=== PATIENT | male | born 1950 | race Caucasian/White ===

== ENCOUNTER 2017-03-08 09:57 | Emergency (ER) | payer OTHER ==
[~2017-03-08] VITALS: Wt 97.5 kg
[~2017-03-08 09:57] MED LIST: 'CIPRO500 M1 PO; ALBUTEROL0.09 MG/A2 INH; ANTIVERT/2525 MG PO; ANTIVERT25 MG PO; ASPI-COR81 M1 PO; ATIVAN0.5 MG PO; ATIVAN1 MG PO; AUGMENTIN 875 M1 TAB PO; AUGMENTIN 875-875 MG PO; AUGMENTIN 875875 MG PO; BIAXIN500 MG PO; CARVEDILOL3.125 MG PO; CIPROFLOXACIN500 MG PO; CITALOPRAM10 MG PO; CLARITIN10 MG PO; CLINDAMYCIN150 MG PO; DURICEF500 MG PO; FLEXERIL10 MG PO; FLOMAX0.4 MG PO; FLONASE 0.05% 121 EA NAS; GLUCOPHAGE500 MG PO; HUMALOG100 U/ML SC; HUMULIN 70/30 703 M1 SC; HUMULIN N100 U/ML SC; HYDROCODONE BIT1 T11 PO; IBU-8800 MG PO; IBUPROFEN600 MG PO; KENALOG 0.5% CR15 GM T; LANTUS100 U/ML SC; LEVOFLOXACIN500 MG PO; LISINOPRIL10 MG PO; LISINOPRIL2.5 MG PO; LOPRESSOR25 MG PO; MEDROL DOSEPAK4 MG PO; METFORMIN500 MG PO; METOPROLOL SUCC25 M2 PO; MIRALAX17 GM PO; MOTRIN800 MG PO; NAPROSYN500 MG PO; NO MED LIST; NORFLEX100 MG PO; NOVOLIN 70/30 701 EA PO; NOVOLIN 70/301.5 ML SC; NOVOLIN 701 UNIT/0.0 SC; NOVOLIN N100 U/ML SC; NOVOLIN R100 U/ML IJ; NOVOLIN R100 U/ML SC; OMEPRAZOLE20 MG PO; PENICILLIN VK500 MG PO; PERCOCET 325 MG1 TA2 PO; PLAVIX75 MG PO; PREDNICOT20 MG PO; PRILOSEC20 MG PO; PROTONIX40 MG PO; PROVENTIL0.09 MG/AC IH; ROBITUSSIN AC 110 ML PO; SIMVASTATIN5 MG PO; SKELAXIN800 M1 PO; TAMSULOSIN HCL0.4 MG PO; TOPROL XL25 MG PO; ULTRAM50 MG PO; VICO10300 PO; VICODIN 5/500 505 MG PO; VITAMIN D32000 IU PO; VITAMIN D400 I1 PO; ZITHROMAX Z PA250 MG PO; ZITHROMAX250 MG PO; ZOCOR10 MG PO; ZOCOR5 MG PO
[2017-03-08 10:03] VITALS: BP 152/65
[2017-03-08 10:44] LABS: BASO # 0.1 10*3/uL (0.0-0.1); BASO % 1.2 % (0.0-1.0); EOS # 0.2 10*3/uL (0.0-0.4); EOS % 1.8 % (1.0-4.0); HEMATOCRIT 49.1 % (42.0-52.0); HEMOGLOBIN 16.5 g/dl (14.0-18.0); LYMPH # 4.9 10*3/uL (1.3-4.4); MEAN CELL VOLUME 91.6 fl (80.0-94.0); MEAN CORPUSCULAR HGB 30.8 pg (27.0-31.0); MEAN CORPUSCULAR HGB CONC 33.6 g/dl (33.0-37.0); MEAN PLATELET VOLUME 10.4 fl (9.6-12.3); MONO # 1.2 10*3/uL (0.1-1.0); MONO % 9.8 % (3.0-9.0); NEUT # 5.3 10*3/uL (2.3-7.9); PLATELET COUNT AUTOMATED 374 10*3/uL (130-400); RED BLOOD COUNT 5.36 10*6/uL (4.50-5.90); RED CELL DISTRI WIDTH 14.9 % (0-14.5); WHITE BLOOD COUNT 11.7 10*3/uL (4.8-10.8)
[2017-03-08 10:57] LABS: ALBUMIN 3.5 gm/dl (3.1-4.5); ALKALINE PHOSPHATASE 87 U/L (45-117); BILIRUBIN, TOTAL 1.4 mg/dl (0.2-1.0); BUN 10 mg/dl (7-24); CARBON DIOXIDE 28 mmol/L (21-32); CHLORIDE 104 mmol/L (98-107); EST GLOM FILT AFRICAN AMERICAN > 60 ml/min; GLUCOSE 187 mg/dL (65-99); POTASSIUM 4.2 mmol/L (3.5-5.1); SGOT/AST 27 IU/L (3-35); SGPT/ALT 22 U/L (12-78); SODIUM 140 mmol/L (136-145); TOTAL PROTEIN 7.2 gm/dL (6.4-8.2)
== END 2017-03-08 12:06 | disposition home or self-care (01) ==
LOC: ED 09:57
PROVIDERS: Emergency Medicine
DX: G89.29 Other chronic pain (principal); R10.9 Unspecified abdominal pain; I10 Essential (primary) hypertension; E10.65 Type 1 diabetes mellitus with hyperglycemia; I48.91 Unspecified atrial fibrillation; Z79.899 Other long term (current) drug therapy; Z79.82 Long term (current) use of aspirin; Z90.49 Acquired absence of other specified parts of digestive tract

== ENCOUNTER 2017-10-02 10:39 | Emergency (ER) | payer OTHER ==
[~2017-10-02] VITALS: Ht 175.2 cm; Wt 95.3 kg
[~2017-10-02 10:39] MED LIST changes: +LANTUS SOL100 UNIT/1 SC; -LANTUS100 U/ML SC
[2017-10-02 10:45] VITALS: BP 138/53
[2017-10-02] MEDS ORDERED: ZITHROMAX250 MG PO (12:45)
== END 2017-10-02 12:56 | disposition home or self-care (01) ==
LOC: ED 10:39
DX: J18.9 Pneumonia, unspecified organism (principal); I48.91 Unspecified atrial fibrillation; E10.65 Type 1 diabetes mellitus with hyperglycemia; I10 Essential (primary) hypertension; G89.29 Other chronic pain; F10.10 Alcohol abuse, uncomplicated; Z90.49 Acquired absence of other specified parts of digestive tract; Z79.82 Long term (current) use of aspirin; Z79.4 Long term (current) use of insulin; Z79.899 Other long term (current) drug therapy

== ENCOUNTER 2017-10-03 23:52 | Emergency (ER) | payer OTHER ==
[~2017-10-03] VITALS: Ht 175.2 cm; Wt 102.1 kg
[2017-10-03 23:58] VITALS: BP 126/63
[2017-10-04 00:27] LABS: HEMATOCRIT 51.3 % (42.0-52.0); HEMOGLOBIN 17.3 g/dl (14.0-18.0); MEAN CELL VOLUME 94.6 fl (80.0-94.0); MEAN CORPUSCULAR HGB 31.9 pg (27.0-31.0); MEAN CORPUSCULAR HGB CONC 33.7 g/dl (33.0-37.0); MEAN PLATELET VOLUME 10.1 fl (9.6-12.3); PLATELET COUNT AUTOMATED 345 10*3/uL (130-400); RED BLOOD COUNT 5.42 10*6/uL (4.50-5.90); RED CELL DISTRI WIDTH 14.9 % (0-14.5); WHITE BLOOD COUNT 13.7 10*3/uL (4.8-10.8)
[2017-10-04 00:44] LABS: ALBUMIN 3.4 gm/dl (3.1-4.5); ALKALINE PHOSPHATASE 83 U/L (45-117); BUN 14 mg/dl (7-24); CHLORIDE 102 mmol/L (98-107); CREATININE 0.94 mg/dL (0.70-1.30); POTASSIUM 4.1 mmol/L (3.5-5.1); SGOT/AST 39 IU/L (3-35); SGPT/ALT 31 U/L (12-78); SODIUM 136 mmol/L (136-145); TOTAL PROTEIN 7.3 gm/dL (6.4-8.2)
[2017-10-04 00:46] LABS: ATYPICAL LYMPHS 1 % (0-0); PLATELET SUFFICIENCY NORMAL (NORMAL); TOTAL CELLS COUNTED 100 #CELLS
== END 2017-10-04 01:58 | disposition home or self-care (01) ==
LOC: ED 23:52
PROVIDERS: Physician Assistant
DX: J18.9 Pneumonia, unspecified organism (principal); Z90.49 Acquired absence of other specified parts of digestive tract; Z98.890 Other specified postprocedural states; Z79.4 Long term (current) use of insulin; Z79.82 Long term (current) use of aspirin; Z79.899 Other long term (current) drug therapy

== ENCOUNTER 2017-10-05 15:59 | Emergency (ER) | payer OTHER ==
[~2017-10-05] VITALS: Ht 175.2 cm; Wt 99.8 kg
[2017-10-05 17:03] LABS: HEMATOCRIT 51.3 % (42.0-52.0); HEMOGLOBIN 17.3 g/dl (14.0-18.0); MEAN CELL VOLUME 94.3 fl (80.0-94.0); MEAN CORPUSCULAR HGB 31.8 pg (27.0-31.0); MEAN CORPUSCULAR HGB CONC 33.7 g/dl (33.0-37.0); PLATELET COUNT AUTOMATED 346 10*3/uL (130-400); RED BLOOD COUNT 5.44 10*6/uL (4.50-5.90); RED CELL DISTRI WIDTH 14.6 % (0-14.5)
[2017-10-05 17:18] LABS: ACT PARTIAL THROMBO TIME 25.2 SECONDS (20.8-31.5)
[2017-10-05 17:21] LABS: ALBUMIN 3.5 gm/dl (3.1-4.5); ALKALINE PHOSPHATASE 87 U/L (45-117); BUN 13 mg/dl (7-24); CHLORIDE 100 mmol/L (98-107); CREATININE 0.95 mg/dL (0.70-1.30); POTASSIUM 3.9 mmol/L (3.5-5.1); SGOT/AST 33 IU/L (3-35); SGPT/ALT 26 U/L (12-78); SODIUM 135 mmol/L (136-145); TOTAL PROTEIN 7.2 gm/dL (6.4-8.2)
[2017-10-05 17:23] LABS: BASOPHILS 1 % (0-1); BURR CELLS FEW; PLATELET SUFFICIENCY NORMAL (NORMAL); TOTAL CELLS COUNTED 100 #CELLS
[2017-10-05 17:25] LABS: TROPONIN I < 0.015 ng/ml (<0.045)
[2017-10-05 17:30] VITALS: BP 134/78
== END 2017-10-05 17:47 | disposition home or self-care (01) ==
LOC: ED 15:59
PROVIDERS: Physician Assistant
DX: J18.1 Lobar pneumonia, unspecified organism (principal); Z79.82 Long term (current) use of aspirin

== ENCOUNTER 2017-11-09 18:33 | Emergency (ER) | payer OTHER ==
[~2017-11-09] VITALS: Ht 175.2 cm; Wt 95.3 kg
[2017-11-09 19:04] LABS: HEMATOCRIT 50.2 % (42.0-52.0); MEAN CELL VOLUME 94.7 fl (80.0-94.0); MEAN CORPUSCULAR HGB 32.1 pg (27.0-31.0); MEAN CORPUSCULAR HGB CONC 33.9 g/dl (33.0-37.0); MEAN PLATELET VOLUME 10.5 fl (9.6-12.3); PLATELET COUNT AUTOMATED 351 10*3/uL (130-400); RED CELL DISTRI WIDTH 14.3 % (0-14.5); WHITE BLOOD COUNT 11.9 10*3/uL (4.8-10.8)
[2017-11-09 19:14] LABS: ACT PARTIAL THROMBO TIME 25.4 SECONDS (20.8-31.5)
[2017-11-09 19:23] LABS: ATYPICAL LYMPHS 5 % (0-0); BURR CELLS MODERATE; PLATELET SUFFICIENCY NORMAL (NORMAL); TOTAL CELLS COUNTED 100 #CELLS
[2017-11-09 19:30] LABS: ALBUMIN 3.6 gm/dl (3.1-4.5); ALKALINE PHOSPHATASE 80 U/L (45-117); BUN 11 mg/dl (7-24); CHLORIDE 99 mmol/L (98-107); CREATININE 0.91 mg/dL (0.70-1.30); LIPASE 87 U/L (73-393); POTASSIUM 3.6 mmol/L (3.5-5.1); SGOT/AST 30 IU/L (3-35); SGPT/ALT 30 U/L (12-78); SODIUM 136 mmol/L (136-145); TOTAL PROTEIN 7.1 gm/dL (6.4-8.2)
[2017-11-09 19:38] LABS: TROPONIN I < 0.015 ng/ml (<0.045)
[2017-11-09 21:50] VITALS: BP 154/54
== END 2017-11-09 21:41 | disposition home or self-care (01) ==
LOC: ED 18:33
PROVIDERS: Nurse Practitioner Family
DX: T38.3X1A Poisoning by insulin and oral hypoglycemic [antidiabetic] drugs, accidental (unintentional), initial encounter (principal); I48.91 Unspecified atrial fibrillation; G89.29 Other chronic pain; E10.65 Type 1 diabetes mellitus with hyperglycemia; I10 Essential (primary) hypertension; Z79.4 Long term (current) use of insulin; Z88.6 Allergy status to analgesic agent; Y92.89 Other specified places as the place of occurrence of the external cause

== ENCOUNTER 2017-12-12 07:32 | Emergency (ER) | payer OTHER ==
[~2017-12-12] VITALS: Ht 175.2 cm; Wt 93.0 kg
--- NOTE | ~2017-12-12 | EKG ---
[place], [place] ELECTROCARDIOGRAM REPORT NAME: MAGDIEL GOULD UNIT #: [id number] ROOM: DOCTOR: WHIT MONTEJO [facility],[place] BIRTHDATE: [birth year] DOS: 12/12/2017 ELECTROCARDIOGRAM REPORT TIME: 08. CONCLUSION: 1. Sinus rhythm. 2. Poor R-wave progression in the precordial leads. ZO SHERMAN MD CM:EKGRPT:ELECTROCARDIOGRAM REPORT [id number] ZO SHERMAN MD [facility]
[2017-12-12 07:38] VITALS: BP 153/72
[2017-12-12 08:19] LABS: HEMATOCRIT 52.3 % (42.0-52.0); HEMOGLOBIN 17.5 g/dl (14.0-18.0); MEAN CORPUSCULAR HGB 32.1 pg (27.0-31.0); MEAN CORPUSCULAR HGB CONC 33.5 g/dl (33.0-37.0); MEAN PLATELET VOLUME 9.9 fl (9.6-12.3); PLATELET COUNT AUTOMATED 383 10*3/uL (130-400); RED BLOOD COUNT 5.45 10*6/uL (4.50-5.90); RED CELL DISTRI WIDTH 14.7 % (0-14.5); WHITE BLOOD COUNT 13.3 10*3/uL (4.8-10.8)
[2017-12-12 08:27] LABS: ACT PARTIAL THROMBO TIME 25.6 SECONDS (20.8-31.5)
[2017-12-12 08:39] LABS: BASOPHILS 1 % (0-1); TOTAL CELLS COUNTED 100 #CELLS
[2017-12-12 08:40] LABS: ACANTHOCYTES FEW; BURR CELLS MANY; HOWELL-JOLLY BODIES FEW; PLATELET SUFFICIENCY NORMAL (NORMAL); SPHEROCYTES FEW
[2017-12-12 08:41] LABS: ALBUMIN 3.4 gm/dl (3.1-4.5); ALKALINE PHOSPHATASE 83 U/L (45-117); BUN 15 mg/dl (7-24); CHLORIDE 103 mmol/L (98-107); CREATININE 0.92 mg/dL (0.70-1.30); LIPASE 87 U/L (73-393); POTASSIUM 4.2 mmol/L (3.5-5.1); SGOT/AST 29 IU/L (3-35); SGPT/ALT 24 U/L (12-78); SODIUM 136 mmol/L (136-145); TOTAL PROTEIN 7.2 gm/dL (6.4-8.2)
[2017-12-12 08:43] LABS: TROPONIN I < 0.015 ng/ml (<0.045)
[2017-12-12] MEDS ORDERED: PREDNISONE50 MG PO (09:49)
[2017-12-12] MEDS ORDERED: LEVAQUIN750 M1 PO (09:49)
== END 2017-12-12 10:17 | disposition home or self-care (01) ==
LOC: ED 07:32
PROVIDERS: Emergency Medicine
DX: J18.9 Pneumonia, unspecified organism (principal); G89.29 Other chronic pain; I10 Essential (primary) hypertension; E10.65 Type 1 diabetes mellitus with hyperglycemia; Z90.49 Acquired absence of other specified parts of digestive tract; Z79.82 Long term (current) use of aspirin; Z79.4 Long term (current) use of insulin; Z79.899 Other long term (current) drug therapy